=== PATIENT | male | born 1990 | race Caucasian/White ===

== ENCOUNTER 2018-05-10 04:03 | Emergency (ER) | payer OTHER ==
[~2018-05-10] VITALS: Ht 182.9 cm; Wt 95.0 kg
[2018-05-10 04:16] VITALS: BP 154/98
[2018-05-10] MEDS ORDERED: BACITRACIN ZINC OINT 500U/GM, 0.9 GM ONE (04:20)
== END 2018-05-10 04:31 | disposition home or self-care (01) ==
LOC: ED 04:25
DX: S50.311A Abrasion of right elbow, initial encounter (principal); S80.211A Abrasion, right knee, initial encounter; G89.11 Acute pain due to trauma; W19.XXXA Unspecified fall, initial encounter; Y93.89 Activity, other specified; Y92.69 Other specified industrial and construction area as the place of occurrence of the external cause; Y99.8 Other external cause status
CPT/HCPCS: 99283

== ENCOUNTER 2020-04-16 07:34 | Emergency (ER) | payer OTHER ==
[~2020-04-16] VITALS: Ht 182.9 cm; Wt 98.0 kg
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
[2020-04-16 08:58] LABS: BASOPHILS # (AUTO) 0.06 x10^3/uL (0-0.1); BASOPHILS % (AUTO) 1 % (0-1); EOSINOPHILS # (AUTO) 0.21 x10^3/uL (0-0.4); EOSINOPHILS % (AUTO) 2 % (1-7); LYMPHOCYTES # (AUTO) 1.91 x10^3/uL (1-3.4); LYMPHOCYTES % (AUTO) 19 % (22-44); MD NO; MEAN CORPUSCULAR HGB CONC 33.4 g/dL (33.2-36.2); MEAN CORPUSCULAR VOLUME 89.8 fL (81-97); MEAN PLATELET VOLUME 8.9 fL (7.4-10.4); MONOCYTES # (AUTO) 0.55 x10^3/uL (0.2-0.8); MONOCYTES % (AUTO) 5 % (2-9); NEUTROPHILS % (AUTO) 74 % (42-75); PLATELET COUNT 259 x10^3/uL (130-400); RED BLOOD COUNT 5.11 x10^6/uL (4.38-5.82); RED CELL DISTRIBUTION WIDTH 12.8 % (9.4-14.8)
[2020-04-16 09:08] LABS: CHLORIDE 107 mmol/L (98-107)
[2020-04-16 09:15] LABS: ALANINE AMINOTRANSFERASE 62 U/L (12-78); ALKALINE PHOSPHATASE 86 U/L (45-117); ANION GAP 6 mmol/L (5-15); BILIRUBIN,TOTAL 0.5 mg/dL (0.2-1.0); CALCIUM 8.3 mg/dL (8.5-10.1); CREATININE 1.46 mg/dL (0.7-1.3); TOTAL PROTEIN 7.9 g/dL (6.4-8.2)
[2020-04-16 09:48] VITALS: BP 133/78
== END 2020-04-16 09:49 | disposition home or self-care (01) ==
LOC: ED 07:38
DX: T59.811A Toxic effect of smoke, accidental (unintentional), initial encounter (principal); S60.412A Abrasion of right middle finger, initial encounter; S60.414A Abrasion of right ring finger, initial encounter; J68.8 Other respiratory conditions due to chemicals, gases, fumes and vapors; M79.641 Pain in right hand; X58.XXXA Exposure to other specified factors, initial encounter; Y93.89 Activity, other specified; Y92.89 Other specified places as the place of occurrence of the external cause; Y99.0 Civilian activity done for income or pay
CPT/HCPCS: 36415; 80053; 82375; 85025; 86705; 86706; 86803; 87340; 87806; 99283; G0475